=== PATIENT | male | born 1965 | race Caucasian/White ===

== ENCOUNTER 2016-08-08 08:30 | Emergency (ER) | payer BC ==
[2016-08-08] MEDS ORDERED: ONDANSETRON 4 MG/2 ML VIAL IVP STA (09:18)
[2016-08-08] MEDS ORDERED: SODIUM CHLORIDE 0.9% 1,000 ML IV STA ×2 (09:18)
[2016-08-08] MEDS ORDERED: HYDROmorphone 1 MG/ML 1 ML SYRINGE IVP STA (09:18)
--- NOTE | 2016-08-08 09:25 | ED ---
General Adult HPI - General Chief complaint: Abdominal Pain Stated complaint: LLQ PAIN, GROIN PAIN Time Seen by Provider: 08/08/16 09:12 Source: patient, RN notes reviewed Mode of arrival: ambulatory Limitations: no limitations - History of Present Illness Initial comments: Patient 51-year-old male who presents emergency room today with a chief complaint of left lower quadrant pain that began 2 days ago. He does admit that seems to be worse when he is up moving around and better when he is lying still. He states that last night when he rolled over to his right side pain increased. States was more comfortable laying on the left. Patient denies any injury or trauma. Patient denies ever having similar symptoms in the past. Currently rates the pain 2/10 as a standing in the room. Admits to nausea. Denies any other complaints. Patient denies any recent fever, chills, shortness of breath, chest pain, back pain, vomiting, numbness or tingling, dysuria or hematuria, constipation or diarrhea, headaches or visual changes, or any other complaints. - Related Data Previous Rx's Medication Instructions Recorded Ciprofloxacin HCl [Cipro] 500 mg PO Q12HR #20 day 08/08/16 Hydrocodone/Acetaminophen [[place] 1 each PO Q6HR PRN #20 tab 08/08/16 5-325] Ibuprofen [Motrin] 600 mg PO Q6HR PRN #40 day 08/08/16 Ondansetron Odt [Zofran ODT] 4 mg PO Q8HR PRN #20 tab 08/08/16 metroNIDAZOLE [Flagyl] 500 mg PO TID 7 Days 08/08/16 Allergies Allergy/AdvReac Type Severity Reaction Status Date / Time No Known Allergies Allergy Verified 08/08/16 09:46 Review of Systems ROS Statement: Those systems with pertinent positive or pertinent negative responses have been documented in the HPI. ROS Other: All systems not noted in ROS Statement are negative. Past Medical History Past Medical History: No Reported History History of Any Multi-Drug Resistant Organisms: None Reported Past Surgical History: Orthopedic Surgery Past Psychological History: No Psychological Hx Reported Smoking Status: Never smoker Past Alcohol Use History: Occasional Past Drug Use History: None Reported General Exam - General Exam Comments Initial Comments: General: The patient is awake and alert, in no distress, and does not appear acutely ill. Eye: Pupils are equal, round and reactive to light, extra-ocular movements are intact. No nystagmus. There is normal conjunctiva bilaterally. No signs of icterus. Ears, nose, mouth and throat: There are moist mucous membranes and no oral lesions. Neck: The neck is supple, there is no tenderness or JVD. Cardiovascular: There is a regular rate and rhythm. No murmur, rub or gallop is appreciated. Respiratory: Lungs are clear to auscultation, respirations are non-labored, breath sounds are equal. No wheezes, stridor, rales, or rhonchi. Gastrointestinal: Normal exam. Normal bowel sounds. Abdomen soft on palpation. Patient does have tenderness left lower quadrant. No CVA tenderness. No rebound tenderness. No guarding. Musculoskeletal: Normal ROM, no tenderness. Strength 5/5. Sensation intact. Pulses equal bilaterally 2+. Neurological: A&O x 3. CN II-XII intact, There are no obvious motor or sensory deficits. Coordination appears grossly intact. Speech is normal. Skin: Skin is warm and dry and no rashes or lesions are noted. Psychiatric: Cooperative, appropriate mood & affect, normal judgment. Limitations: no limitations Course Vital Signs 08/08/16 08:52 Temperature 99.9 F H Pulse Rate 79 Respiratory 20 Rate Blood Pressure 141/72 O2 Sat by Pulse 99 Oximetry Medical Decision Making - Medical Decision Making Patient reexamined at this time shows no signs of distress. Patient's CT does reveal evidence of diverticular disease. Patient will be started on Cipro Flagyl along with nausea medication and pain medicine to go home with. Feels comfortable being discharged. Patient advised return if any fever or increase or worsening of symptoms. Advised to follow-up with his family doctor. Patient states understanding and is in agreement. - Lab Data Result diagrams: 08/08/16 09:45 08/08/16 09:45 Lab Results 08/08/16 08/08/16 08/08/16 Range/Units 09:45 09:45 09:45 WBC 8.8 (3.8-10.6) k/uL RBC 5.87 (4.30-5.90) m/uL Hgb 15.7 (13.0-17.5) gm/dL Hct 48.4 (39.0-53.0) % MCV 82.4 (80.0-100.0) fL MCH 26.7 (25.0-35.0) pg MCHC 32.4 (31.0-37.0) g/dL RDW 15.1 (11.5-15.5) % Plt Count 236 (150-450) k/uL Neutrophils % 71 % Lymphocytes % 17 % Monocytes % 8 % Eosinophils % 1 % Basophils % 1 % Neutrophils # 6.3 (1.3-7.7) k/uL Lymphocytes # 1.5 (1.0-4.8) k/uL Monocytes # 0.7 (0-1.0) k/uL Eosinophils # 0.1 (0-0.7) k/uL Basophils # 0.1 (0-0.2) k/uL Sodium 142 (137-145) mmol/L Potassium 4.5 (3.5-5.1) mmol/L Chloride 103 (98-107) mmol/L Carbon Dioxide 26 (22-30) mmol/L Anion Gap 13 mmol/L BUN 13 (9-20) mg/dL Creatinine 1.10 (0.66-1.25) mg/dL Est GFR (MDRD) Af Amer >60 (>60 ml/min/1.73 sqM) Est GFR (MDRD) Non-Af >60 (>60 ml/min/1.73 sqM) Glucose 104 H (74-99) mg/dL Plasma Lactic Acid Joey 1.1 (0.7-2.0) mmol/L Calcium 9.5 (8.4-10.2) mg/dL Total Bilirubin 1.1 (0.2-1.3) mg/dL AST 30 (17-59) U/L ALT 42 (21-72) U/L Alkaline Phosphatase 89 (38-126) U/L Total Protein 7.5 (6.3-8.2) g/dL Albumin 4.3 (3.5-5.0) g/dL Amylase 60 (30-110) U/L Lipase 58 (23-300) U/L Urine Color Urine Appearance (Clear) Urine pH (5.0-8.0) Ur Specific [place] (1.001-1.035) Urine Protein (Negative) Urine Glucose (UA) (Negative) Urine Ketones (Negative) Urine Blood (Negative) Urine Nitrate (Negative) Urine Bilirubin (Negative) Urine Urobilinogen (<2.0) mg/dL Ur Leukocyte Esterase (Negative) Urine WBC (0-5) /hpf Urine Mucus (None) /hpf 08/08/16 Range/Units 09:45 WBC (3.8-10.6) k/uL RBC (4.30-5.90) m/uL Hgb (13.0-17.5) gm/dL Hct (39.0-53.0) % MCV (80.0-100.0) fL MCH (25.0-35.0) pg MCHC (31.0-37.0) g/dL RDW (11.5-15.5) % Plt Count (150-450) k/uL Neutrophils % % Lymphocytes % % Monocytes % % Eosinophils % % Basophils % % Neutrophils # (1.3-7.7) k/uL Lymphocytes # (1.0-4.8) k/uL Monocytes # (0-1.0) k/uL Eosinophils # (0-0.7) k/uL Basophils # (0-0.2) k/uL Sodium (137-145) mmol/L Potassium (3.5-5.1) mmol/L Chloride (98-107) mmol/L Carbon Dioxide (22-30) mmol/L Anion Gap mmol/L BUN (9-20) mg/dL Creatinine (0.66-1.25) mg/dL Est GFR (MDRD) Af Amer (>60 ml/min/1.73 sqM) Est GFR (MDRD) Non-Af (>60 ml/min/1.73 sqM) Glucose (74-99) mg/dL Plasma Lactic Acid Joey (0.7-2.0) mmol/L Calcium (8.4-10.2) mg/dL Total Bilirubin (0.2-1.3) mg/dL AST (17-59) U/L ALT (21-72) U/L Alkaline Phosphatase (38-126) U/L Total Protein (6.3-8.2) g/dL Albumin (3.5-5.0) g/dL Amylase (30-110) U/L Lipase (23-300) U/L Urine Color Yellow Urine Appearance Clear (Clear) Urine pH 5.0 (5.0-8.0) Ur Specific [place] 1.018 (1.001-1.035) Urine Protein Negative (Negative) Urine Glucose (UA) Negative (Negative) Urine Ketones Negative (Negative) Urine Blood Negative (Negative) Urine Nitrate Negative (Negative) Urine Bilirubin Negative (Negative) Urine Urobilinogen <2.0 (<2.0) mg/dL Ur Leukocyte Esterase Trace H (Negative) Urine WBC 6 H (0-5) /hpf Urine Mucus Rare H (None) /hpf Disposition Clinical Impression: Acute diverticulitis Disposition: HOME SELF-CARE Condition: Good Instructions: Diverticulitis (ED) Additional Instructions: Please use medication as discussed. Please follow-up with family doctor in the next 2 days of symptoms have not improved. Please return to emergency room if the symptoms increase or worsen or for any other concerns. Prescriptions: Ciprofloxacin HCl [Cipro] 500 mg PO Q12HR #20 day Hydrocodone/Acetaminophen [[place] 5-325] 1 each PO Q6HR PRN #20 tab PRN Reason: Pain Ibuprofen [Motrin] 600 mg PO Q6HR PRN #40 day PRN Reason: Pain Ondansetron Odt [Zofran ODT] 4 mg PO Q8HR PRN #20 tab PRN Reason: Nausea metroNIDAZOLE [Flagyl] 500 mg PO TID 7 Days Referrals: None,Stated [Primary Care Provider] - 1-2 days Madhavi Mohamud MD [STAFF PHYSICIAN] - 1-2 days Time of Disposition: 11:21
[2016-08-08 10:03] LABS: Basophils # (A) 0.1 k/uL (0-0.2); Basophils % (A) 1 %; CH 26.8; CHCM 32.7; Eosinophils # (A) 0.1 k/uL (0-0.7); Eosinophils % (A) 1 %; HCT 48.4 % (39.0-53.0); HDW 2.58; HGB 15.7 gm/dL (13.0-17.5); Luc # (Auto) 0.17; Luc % (Auto) 2; Lymphocytes # (A) 1.5 k/uL (1.0-4.8); Lymphocytes % (A) 17 %; MCH 26.7 pg (25.0-35.0); MCHC 32.4 g/dL (31.0-37.0); MCV 82.4 fL (80.0-100.0); Mean Platelet Volume 7.8; Monocytes # (A) 0.7 k/uL (0-1.0); Monocytes % (A) 8 %; Neutrophils # (A) 6.3 k/uL (1.3-7.7); Neutrophils % (A) 71 %; RBC 5.87 m/uL (4.30-5.90); RDW 15.1 % (11.5-15.5); WBC 8.8 k/uL (3.8-10.6); WBC (Perox) 8.41
[2016-08-08 10:04] LABS: Appearance,Urine Clear (Clear); Bilirubin,Urine Negative (Negative); Glucose,Urine (UA) Negative (Negative); Ketones,Urine Negative (Negative); Leukocyte Esterase,Urine Trace (Negative); Mucus,Urine Rare /hpf; Nitrite,Urine Negative (Negative); Particle Count 1861; Protein,Urine Negative (Negative); Specific Gravity,Urine 1.018 (1.001-1.035); UA Billing (MACRO vs. MICRO) MICRO; Urobilinogen,Urine <2.0 mg/dL (<2.0); WBC,Urine 6 /hpf (0-5)
[2016-08-08 10:13] LABS: ALT 42 U/L (21-72); AST 30 U/L (17-59); Alkaline Phosphatase 89 U/L (38-126); Amylase 60 U/L (30-110); Anion Gap 13 mmol/L; Blood Urea Nitrogen 13 mg/dL (9-20); Calcium 9.5 mg/dL (8.4-10.2); Carbon Dioxide 26 mmol/L (22-30); Chloride 103 mmol/L (98-107); Glucose 104 mg/dL (74-99); Non-African American GFR(MDRD) >60 (>60 ml/min/1.73 sqM); Potassium 4.5 mmol/L (3.5-5.1); Sodium 142 mmol/L (137-145); Total Bilirubin 1.1 mg/dL (0.2-1.3); Total Protein 7.5 g/dL (6.3-8.2)
[2016-08-08] MEDS ORDERED: RX INFO: IV CONTRAST WAS GIVEN 1 EACH MISC MISCELLANE PRN (10:19)
--- NOTE | 2016-08-08 10:35 | XR ---
EXAMINATION TYPE: XR KUB DATE OF EXAM: 08/08/2016 10:08 AM COMPARISON: NONE INDICATION: Abdomen pain left side TECHNIQUE: Single view abdomen FINDINGS: Normal: Bowel gas is present. Some nonspecific small bowel gas is within the left midabdomen and left lower quadrant. Psoas margins are normal. No organomegaly is present. Nonspecific small bowel gas with air-fluid levels may be present. Differential air-fluid levels are n ot present. IMPRESSION: 1. Nonspecific abdomen.
--- NOTE | 2016-08-08 11:03 | CT ---
EXAMINATION TYPE: CT abdomen pelvis w con DATE OF EXAM: 08/08/2016 10:53 AM COMPARISON: NONE INDICATION: LLQ pain DLP: 2128.5 mGycm, Automated exposure control for dose reduction was used. CONTRAST: 100 ml mL of Omnipaque 300. Study performed without Oral Contrast TECHNIQUE: Axial images were obtained from above the diaphragm to the pubic rami in the axial plane a t 5 mm thick sections. Reconstructed images are reviewed on the computer in the coronal plane. FINDINGS: Limited CT sections are obtained the lung bases. The lung bases are clear. CT ABDOMEN: Liver: There is a 1.7 cm cyst at the inferior medial right tip of the liver measuring 5 [place] un its. Spleen: Normal Pancreas: Normal Adrenal glands: The adrenal glands are normal. Gallbladder: Normal Kidneys: No masses are evident. No hydronephrosis is present. No cysts are present. Delayed images were obtained through the kidneys, which remain unremarkable. Aorta: Normal Inferior vena cava: Normal. CT PELVIS: There is mild inflammatory change adjacent to a diverticulum within the descending colon a nd sigmoid colon junction region. Mild diverticulitis may be present. Loops of bowel within the abdomen and pelvis are otherwise normal. Appendix: Normal as visualized. Urinary bladder: Normal. Genitourinary structures: Prostate is prominent. Seminal vesicles are prominent. Correlate with PSA. Osseous structures: No suspicious lytic or sclerotic lesions. There may be a bone island on the lower left anterior sacrum. Sclerotic metastasis is not entirely excluded. IMPRESSIONS: 1. Mild diverticulitis descending colon sigmoid colon junction.
[2016-08-08 11:42] VITALS: BP 135/66; PULSE 73; RESP 18; TEMP 98.2
== END 2016-08-08 11:40 | disposition home or self-care (01) ==
LOC: EC 08:30
DX: K57.92 Diverticulitis of intestine, part unspecified, without perforation or abscess without bleeding (principal); R11.0 Nausea
CPT/HCPCS: 99284; 96374; 96375; 96361 ×2; 36415; 80053; 82150; 83605; 83690; 85025; 81001; 87040; 74000; 74177; J2405; J1170; Q9967

== ENCOUNTER 2021-03-30 09:37 | Emergency (ER) | payer BC, OTHER ==
[2021-03-30 09:44] VITALS: BP 169/84; PULSE 73; RESP 18
[2021-03-30] MEDS ORDERED: DEXAMETHASONE SOD PHOSPHATE 10 MG/ML 1 ML VIAL IM STA (09:59)
--- NOTE | 2021-03-30 10:07 | ED ---
General Adult HPI - General Chief complaint: Extremity Problem,Nontraumatic Stated complaint: ankle pain Time Seen by Provider: 03/30/21 09:45 Source: patient Mode of arrival: ambulatory Limitations: physical limitation - History of Present Illness Initial comments: Dictation was produced using [employer] dictation software. please excuse any grammatical, word or spelling errors. Chief Complaint: 56-year-old male presents with right medial ankle pain History of Present Illness: 56-year-old male who presents with right medial ankle pain. Patient states that prior to the onset of his symptoms he just bought new shoes. He states that his new shoes started to cause him discomfort. Denies any trauma to the ankle. Denies any inciting movements that causes pain. Patient states he had a similar issue like this in the past. He was told it was gout but he did receive IM injection of steroids with improvement of his symptoms after 24 hours. Patient denies any other symptoms. Patient denies any arthritis to the ankle. He states he doesn't have medical insurance and would like is minimal workup as possible. Denies any fever or constitutional symptoms. No nausea or vomiting. The ROS documented in this emergency department record has been reviewed and confirmed by me. Those systems with pertinent positive or negative responses have been documented in the HPI. All other systems are other negative and/or noncontributory. PHYSICAL EXAM: General Impression: Alert and oriented x3, not in acute distress HEENT: Normocephalic atraumatic, extra-ocular movements intact, pupils equal and reactive to light bilaterally, mucous membranes moist. Chest: Able to complete full sentences, no retractions, no tachypnea Musculoskeletal: Pulses present and equal in all extremities, no peripheral edema Motor: no focal deficits noted Neurological: CN II-XII grossly intact, no focal motor or sensory deficits noted Skin: Intact with no visualized rashes Psych: Normal affect and mood Right ankle: Mild erythema to the medial right ankle with palpatory tenderness. He does have intact ankle flexion and extension with minimal pain. Patient's ankle is manipulated without significant distress. ED course: 56-year-old male presents to the emergency department for atraumatic right medial ankle pain. Prior to the onset of symptoms he just started to wear new shoes. Vital signs upon arrival shows findings within acceptable limits. Clinical presentation concerning for gout versus arthritic pain. Patient does not want an x-ray in order to reduce ER visit cost. No concerns for septic arthritis. Does limited constitutional symptoms. Initial temperature checked in triage was 100.1 but he was wearing all of his winter clothing. repeat temp in 99.0. Patient wants an IM injection of steroids and be discharge. I believe this is reasonable plan. Patient told that his symptoms could reflect gout. Her primary care physician he can follow up with for reevaluation. Return precautions discussed. - Related Data Previous Rx's Medication Instructions Recorded Ciprofloxacin HCl [Cipro] 500 mg PO Q12HR #20 day 08/08/16 Hydrocodone/Acetaminophen [[place] 1 each PO Q6HR PRN #20 tab 08/08/16 5-325] Ibuprofen [Motrin] 600 mg PO Q6HR PRN #40 day 08/08/16 Ondansetron Odt [Zofran ODT] 4 mg PO Q8HR PRN #20 tab 08/08/16 metroNIDAZOLE [Flagyl] 500 mg PO TID 7 Days tab 08/08/16 Allergies Allergy/AdvReac Type Severity Reaction Status Date / Time No Known Allergies Allergy Verified 03/30/21 09:44 Review of Systems ROS Statement: Those systems with pertinent positive or pertinent negative responses have been documented in the HPI. ROS Other: All systems not noted in ROS Statement are negative. Past Medical History Past Medical History: No Reported History History of Any Multi-Drug Resistant Organisms: None Reported Past Surgical History: Orthopedic Surgery Past Psychological History: No Psychological Hx Reported Smoking Status: Never smoker Past Alcohol Use History: Occasional Past Drug Use History: None Reported General Exam Limitations: physical limitation Course Vital Signs 03/30/21 09:41 Temperature 100.1 F H Pulse Rate 73 Respiratory 18 Rate Blood Pressure 169/84 O2 Sat by Pulse 98 Oximetry Disposition Clinical Impression: Ankle pain Disposition: HOME SELF-CARE Condition: Fair Instructions (If sedation given, give patient instructions): Arthralgia (ED) Additional Instructions: Follow-up with primary care doctor. Henry seek medical attention if you have worsening pain, constitutional symptoms like fever, chills or night sweats. Is patient prescribed a controlled substance at d/c from ED?: No Referrals: Kevin Birch MD [Primary Care Provider] - 1-2 days
[2021-03-30 10:11] VITALS: TEMP 99.3
== END 2021-03-30 10:25 | disposition home or self-care (01) ==
LOC: EC 09:37
DX: M25.571 Pain in right ankle and joints of right foot (principal)
CPT/HCPCS: 96372; 99283; J1100

== ENCOUNTER 2021-08-05 04:30 | Inpatient (IN) | payer BC ==
[2021-08-05] MEDS ORDERED: MORPHINE SULFATE 4 MG/ML SYRINGE IV STA (04:51)
[2021-08-05] MEDS ORDERED: ONDANSETRON 4 MG/2 ML VIAL IVP STA (04:51)
[2021-08-05] MEDS ORDERED: SODIUM CHLORIDE 0.9% 1,000 ML IV STA (04:51)
--- NOTE | 2021-08-05 04:52 | ED ---
Abdominal Pain HPI - General Chief Complaint: Abdominal Pain Stated Complaint: Groin Pain Time Seen by Provider: 08/05/21 04:51 Source: patient, RN notes reviewed, old records reviewed Mode of arrival: ambulatory Limitations: no limitations - History of Present Illness Initial Comments: This is a 56-year-old male DF for evaluation. Patient denies any significant medical history does have a prior history of diverticulitis and started with severe abdominal pain 2 days ago. Patient initially thought it may be food that he ate but the pain is progressively worsening developed fever last night fever of 101. Has a mild nausea no vomiting. No diarrhea no blood in the stool. Patient has never had a colonoscopy. Patient's abdominal pain significant for progressed throughout the night and today presents DF for evaluation and pain control MD Complaint: abdominal pain (Left lower quadrant) -: days(s) Location: LLQ Radiation: LLQ Migration to: LLQ, suprapubic Severity: severe Severity scale (1-10): 8 Quality: cramping, stabbing Consistency: constant Improves With: nothing Worsens With: nothing Associated Symptoms: nausea, constipation Treatments Prior to Arrival: other (none) - Related Data Previous Rx's Medication Instructions Recorded Ciprofloxacin HCl [Cipro] 500 mg PO Q12HR #20 day 08/08/16 Hydrocodone/Acetaminophen [[place] 1 each PO Q6HR PRN #20 tab 08/08/16 5-325] Ibuprofen [Motrin] 600 mg PO Q6HR PRN #40 day 08/08/16 Ondansetron Odt [Zofran ODT] 4 mg PO Q8HR PRN #20 tab 08/08/16 metroNIDAZOLE [Flagyl] 500 mg PO TID 7 Days tab 08/08/16 Allergies Allergy/AdvReac Type Severity Reaction Status Date / Time No Known Allergies Allergy Verified 08/05/21 04:39 Review of Systems ROS Statement: Those systems with pertinent positive or pertinent negative responses have been documented in the HPI. ROS Other: All systems not noted in ROS Statement are negative. Past Medical History Past Medical History: No Reported History History of Any Multi-Drug Resistant Organisms: None Reported Past Surgical History: Orthopedic Surgery Additional Past Surgical History / Comment(s): surgery both knees Past Psychological History: No Psychological Hx Reported Smoking Status: Never smoker Past Alcohol Use History: Occasional Past Drug Use History: None Reported General Exam General appearance: alert, in no apparent distress Head exam: Present: atraumatic, normocephalic, normal inspection Eye exam: Present: normal appearance, PERRL, EOMI. Absent: scleral icterus, conjunctival injection, periorbital swelling ENT exam: Present: normal exam, mucous membranes moist Neck exam: Present: normal inspection. Absent: tenderness, meningismus, lymphadenopathy Respiratory exam: Present: normal lung sounds bilaterally. Absent: respiratory distress, wheezes, rales, rhonchi, stridor Cardiovascular Exam: Present: regular rate, normal rhythm, normal heart sounds. Absent: systolic murmur, diastolic murmur, rubs, gallop, clicks GI/Abdominal exam: Present: soft, distended, tenderness, guarding, normal bowel sounds. Absent: rebound, rigid Extremities exam: Present: normal inspection, full ROM, normal capillary refill. Absent: tenderness, pedal edema, joint swelling, calf tenderness Back exam: Present: normal inspection Neurological exam: Present: alert, oriented X3, CN II-XII intact Psychiatric exam: Present: normal affect, normal mood Skin exam: Present: warm, dry, intact, normal color. Absent: rash Course Vital Signs 08/05/21 04:35 Temperature 98 F Pulse Rate 100 Respiratory 19 Rate Blood Pressure 150/99 O2 Sat by Pulse 98 Oximetry - Reevaluation(s) Reevaluation #1: 08/05/21 06:24 Medical record is reviewed Reevaluation #2: 08/05/21 06:24 Patient's pain is well-controlled currently but does not fill comfortable with discharge Reevaluation #3: 08/05/21 06:24 Patient informed results and questions have been answered Medical Decision Making - Medical Decision Making 56 male to the emergency department today. Patient Dese for evaluation regards to severe left lower quadrant abdominal pain unable to move due to the pain. Patient does have left-sided diverticulitis worsen his prior bout of diverticulitis. Also presented with fever at home 101. Patient be admitted for IV antibiotics and by mouth status and pain control - Lab Data Result diagrams: 08/05/21 05:00 08/05/21 05:00 Lab Results 08/05/21 08/05/21 08/05/21 Range/Units 05:00 05:00 05:00 WBC 5.6 (3.8-10.6) k/uL RBC 5.91 H (4.30-5.90) m/uL Hgb 17.7 H (13.0-17.5) gm/dL Hct 51.8 (39.0-53.0) % MCV 87.7 (80.0-100.0) fL MCH 30.1 (25.0-35.0) pg MCHC 34.3 (31.0-37.0) g/dL RDW 14.1 (11.5-15.5) % Plt Count 174 (150-450) k/uL MPV 7.9 Neutrophils % 65 % Lymphocytes % 23 % Monocytes % 7 % Eosinophils % 1 % Basophils % 1 % Neutrophils # 3.7 (1.3-7.7) k/uL Lymphocytes # 1.3 (1.0-4.8) k/uL Monocytes # 0.4 (0-1.0) k/uL Eosinophils # 0.1 (0-0.7) k/uL Basophils # 0.0 (0-0.2) k/uL PT 11.0 (9.0-12.0) sec INR 1.0 (<1.2) APTT 26.0 (22.0-30.0) sec Sodium 134 L (137-145) mmol/L Potassium 4.1 (3.5-5.1) mmol/L Chloride 101 (98-107) mmol/L Carbon Dioxide 22 (22-30) mmol/L Anion Gap 11 mmol/L BUN 14 (9-20) mg/dL Creatinine 0.94 (0.66-1.25) mg/dL Est GFR (CKD-EPI)AfAm >90 (>60 ml/min/1.73 sqM) Est GFR (CKD-EPI)NonAf >90 (>60 ml/min/1.73 sqM) Glucose 115 H (74-99) mg/dL Plasma Lactic Acid Joey (0.7-2.0) mmol/L Calcium 9.0 (8.4-10.2) mg/dL Total Bilirubin 0.9 (0.2-1.3) mg/dL AST 38 (17-59) U/L ALT 34 (4-49) U/L Alkaline Phosphatase 88 (38-126) U/L Total Protein 7.7 (6.3-8.2) g/dL Albumin 4.5 (3.5-5.0) g/dL Amylase 55 (30-110) U/L Lipase 60 (23-300) U/L 08/05/21 Range/Units 05:00 WBC (3.8-10.6) k/uL RBC (4.30-5.90) m/uL Hgb (13.0-17.5) gm/dL Hct (39.0-53.0) % MCV (80.0-100.0) fL MCH (25.0-35.0) pg MCHC (31.0-37.0) g/dL RDW (11.5-15.5) % Plt Count (150-450) k/uL MPV Neutrophils % % Lymphocytes % % Monocytes % % Eosinophils % % Basophils % % Neutrophils # (1.3-7.7) k/uL Lymphocytes # (1.0-4.8) k/uL Monocytes # (0-1.0) k/uL Eosinophils # (0-0.7) k/uL Basophils # (0-0.2) k/uL PT (9.0-12.0) sec INR (<1.2) APTT (22.0-30.0) sec Sodium (137-145) mmol/L Potassium (3.5-5.1) mmol/L Chloride (98-107) mmol/L Carbon Dioxide (22-30) mmol/L Anion Gap mmol/L BUN (9-20) mg/dL Creatinine (0.66-1.25) mg/dL Est GFR (CKD-EPI)AfAm (>60 ml/min/1.73 sqM) Est GFR (CKD-EPI)NonAf (>60 ml/min/1.73 sqM) Glucose (74-99) mg/dL Plasma Lactic Acid Joey 0.8 (0.7-2.0) mmol/L Calcium (8.4-10.2) mg/dL Total Bilirubin (0.2-1.3) mg/dL AST (17-59) U/L ALT (4-49) U/L Alkaline Phosphatase (38-126) U/L Total Protein (6.3-8.2) g/dL Albumin (3.5-5.0) g/dL Amylase (30-110) U/L Lipase (23-300) U/L - Radiology Data Radiology results: report reviewed (CT abdomen and pelvis is positive for diverticulitis worsen prior), image reviewed Disposition Clinical Impression: Abdominal pain, Diverticulitis, Acute diverticulitis, Fever Disposition: ADMITTED IP TO THIS HOSP Condition: Stable Is patient prescribed a controlled substance at d/c from ED?: No Referrals: Kevin Birch MD [Primary Care Provider] - 1-2 days
[2021-08-05 05:15] LABS: Basophils % (A) 1 %; Eosinophils # (A) 0.1 k/uL (0-0.7); Eosinophils % (A) 1 %; HCT 51.8 % (39.0-53.0); HGB 17.7 gm/dL (13.0-17.5); Lymphocytes # (A) 1.3 k/uL (1.0-4.8); Lymphocytes % (A) 23 %; MCH 30.1 pg (25.0-35.0); MCHC 34.3 g/dL (31.0-37.0); MCV 87.7 fL (80.0-100.0); Mean Platelet Volume 7.9; Monocytes # (A) 0.4 k/uL (0-1.0); Monocytes % (A) 7 %; Neutrophils # (A) 3.7 k/uL (1.3-7.7); Neutrophils % (A) 65 %; Platelet Count 174 k/uL (150-450); RBC 5.91 m/uL (4.30-5.90); RDW 14.1 % (11.5-15.5); WBC 5.6 k/uL (3.8-10.6)
[2021-08-05 05:27] LABS: ALT 34 U/L (4-49); AST 38 U/L (17-59); African American GFR (CKD) >90 (>60 ml/min/1.73 sqM); Albumin 4.5 g/dL (3.5-5.0); Alkaline Phosphatase 88 U/L (38-126); Amylase 55 U/L (30-110); Anion Gap 11 mmol/L; Blood Urea Nitrogen 14 mg/dL (9-20); Carbon Dioxide 22 mmol/L (22-30); Chloride 101 mmol/L (98-107); Glucose 115 mg/dL (74-99); Lipase 60 U/L (23-300); Non-African American GFR(CKD) >90 (>60 ml/min/1.73 sqM); Potassium 4.1 mmol/L (3.5-5.1); Sodium 134 mmol/L (137-145); Total Bilirubin 0.9 mg/dL (0.2-1.3); Total Protein 7.7 g/dL (6.3-8.2)
--- NOTE | 2021-08-05 05:50 | CT ---
EXAMINATION TYPE: CT abdomen pelvis w con DATE OF EXAM: 08/05/2021 COMPARISON: 08/08/2016 HISTORY: lower abdominal pain CT DLP: 2591.6 mGycm Automated exposure control for dose reduction was used. CONTRAST: Performed with IV Contrast, patient injected with 100ml mL of Isovue 300. Images obtained from the diaphragm to the floor the pelvis with IV contrast. Lung bases are clear. There is no pleural effusion. Heart size is normal. There is no pericardial eff usion. Liver spleen stomach pancreas appear intact. Bowel gas are not dilated. Gallbladder appears no rmal. There is no adrenal mass. Kidneys show satisfactory contrast opacification. There is no hydronephrosi s. Ureters are not dilated. Appendix is posterior and appears normal. The bladder distends smoothly. There is no retroperitoneal adenopathy. There is no inguinal hernia. There is no free fluid in the pelvis. There is some fat stranding around the proximal sigmoid colon w ith numerous diverticula. Lumbar vertebrae have normal alignment. There is no compression fracture. Bony pelvis is intact. The hip joints are intact. IMPRESSION: Sigmoid diverticulitis. No drainable fluid collection. Moderate colonic diverticulosis involving main ly the sigmoid colon. Diverticulitis appears worse than last exam.
[2021-08-05] MEDS ORDERED: AMPICILLIN-SULBACTAM 3 GM in SODIUM CHLORIDE 0.9% 100 ML IVPB STA (05:53)
[2021-08-05] MEDS ORDERED: LORazepam 2 MG/ML INJ IV PRN (06:26)
[2021-08-05] MEDS ORDERED: NALOXONE 0.4 MG/ML 1 ML VIAL IV PRN ×2 (06:26→11:33)
[2021-08-05] MEDS ORDERED: MORPHINE SULFATE 4 MG/ML SYRINGE IV PRN (06:26)
[2021-08-05] MEDS ORDERED: ONDANSETRON 4 MG/2 ML VIAL IVP PRN (06:26)
[2021-08-05] MEDS: SODIUM CHLORIDE 0.9% 1,000 ML IV SCH ×2 (06:37→21:52)
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
[2021-08-05] MEDS: metroNIDAZOLE-NS PMX 500 MG in SALINE 1 100ML.BAG IVPB SCH ×2 (15:00→21:52)
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
[2021-08-05] MEDS ORDERED: AMPICILLIN-SULBACTAM 3 GM in SODIUM CHLORIDE 0.9% 100 ML IVPB SCH (16:00)
[2021-08-06] MEDS: SODIUM CHLORIDE 0.9% 1,000 ML IV SCH ×4 (00:20→22:24)
[2021-08-06] MEDS: metroNIDAZOLE-NS PMX 500 MG in SALINE 1 100ML.BAG IVPB SCH ×3 (03:38→19:46)
[2021-08-06 09:41] LABS: Basophils # (A) 0.03 X 10*3/uL (0.00-0.10); Basophils % (A) 0.5 %; Eosinophils # (A) 0.05 X 10*3/uL (0.04-0.35); Eosinophils % (A) 0.8 %; HCT 47.4 % (39.6-50.0); HGB 15.4 g/dL (13.0-17.0); Immature Grans, Automated 0.3 %; Lymphocytes # (A) 1.11 X 10*3/uL (0.90-5.00); Lymphocytes % (A) 18.6 %; MCH 28.6 pg (27.0-32.0); MCHC 32.5 g/dL (32.0-37.0); MCV 88.1 fL (80.0-97.0); Mean Platelet Volume 10.7 fL (9.5-12.2); Monocytes # (A) 0.95 X 10*3/uL (0.20-1.00); Monocytes % (A) 15.9 %; NRBC Per 100 WBC 0 /100 WBCS (0.0-0.0); Neutrophils # (A) 3.82 X 10*3/uL (1.80-7.70); Neutrophils % (A) 63.9 %; Platelet Count 156 X 10*3/uL (140-440); RBC 5.38 X 10*6/uL (4.40-5.60); RDW 13.8 % (11.5-14.5); WBC 5.98 X 10*3/uL (4.50-10.00)
[2021-08-06 10:00] LABS: African American GFR (CKD) 110.3 (60.0-200.0); Albumin 3.7 g/dL (3.8-4.9); Albumin/Globulin Ratio 1.61 (1.60-3.17); Anion Gap 10.9 mmol/L (10.00-18.00); BUN/Creat Ratio 9.89 Ratio (12.00-20.00); Blood Urea Nitrogen 8.9 mg/dL (9.0-27.0); Calcium 8.5 mg/dL (8.7-10.3); Carbon Dioxide 24.1 mmol/L (20.0-27.5); Globulin 2.3 g/dL (1.6-3.3); Magnesium 1.9 mg/dL (1.5-2.4); Non-African American GFR(CKD) 95.1 (60.0-200.0); Phosphorus 3.1 mg/dL (2.4-5.1); Potassium 4.2 mmol/L (3.5-5.5); Total Bilirubin 0.5 mg/dL (0.30-1.20)
[2021-08-06] MEDS ORDERED: KETOROLAC 30 MG/ML 1 ML VIAL IVP SCH (12:00)
--- NOTE | 2021-08-06 12:42 | P.PN ---
Subjective Progress Note Date: 08/06/21 CHIEF COMPLAINT: Diverticulitis HISTORY OF PRESENT ILLNESS: Patient reporting improvement in pain. He reports that his pain is mostly with movement. He is having small amount of gas. Denies any bowel movement. Denies any nausea or vomiting. Currently nothing by mouth. White count normal at 5.98. Patient requesting something other than morphine for pain. Afebrile. PHYSICAL EXAM: VITAL SIGNS: Reviewed. GENERAL: Well-developed in no acute distress. HEENT: No sclera icterus. Extraocular movements grossly intact. Moist buccal mucosa. Head is atraumatic, normocephalic. ABDOMEN: Soft. Nondistended. Pain with palpation in the left lower quadrant. NEUROLOGIC: Alert and oriented. Cranial nerves II through XII grossly intact. ASSESSMENT: 1. Acute sigmoid diverticulitis PLAN: -Keep patient nothing by mouth -Continue IV antibiotics -Add Toradol for pain control -Continue to monitor patient Physician Air Brush Operator note has been reviewed by physician. Signing provider agrees with the documented findings, assessment, and plan of care. Objective - Vital Signs Vital signs: Vital Signs Temp 97.4 F L 08/06/21 07:14 Pulse 78 08/06/21 07:14 Resp 18 08/06/21 07:14 BP 128/81 08/06/21 07:14 Pulse Ox 95 08/06/21 07:14 Intake & Output 08/05/21 08/06/21 08/06/21 18:59 06:59 18:59 Intake Total 1400 Output Total 1 Balance 1399 Weight 117.934 kg Intake: Intake, IV Titration 1400 Amount Sodium Chloride 0.9% 1, 1300 000 ml @ 130 mls/hr IV . Q7H42M [facility] Rx#:[id number] metroNIDAZOLE-NS PMX 500 100 mg In Saline 1 100ml.bag @ 100 mls/hr IVPB Q8H [facility] Rx#:[id number] Output: Urine 1 Other: Voiding Method Toilet # Voids 2 - Labs CBC & Chem 7: 08/06/21 04:30 08/06/21 04:30 Labs: Abnormal Lab Results - Last 24 Hours (Table) 08/06/21 Range/Units 04:30 BUN 8.9 L (9.0-27.0) mg/dL BUN/Creatinine Ratio 9.89 L (12.00-20.00) Ratio Calcium 8.5 L (8.7-10.3) mg/dL Total Protein 6.0 L (6.2-8.2) g/dL Albumin 3.7 L (3.8-4.9) g/dL
--- NOTE | 2021-08-06 14:04 | P.PN ---
Subjective Progress Note Date: 08/06/21 Principal diagnosis: abdominal pain Doing well. Feeling slightly better but still with pain in the left side of the abdomen. No nausea or vomiting. No fevers. Objective - Vital Signs Vital signs: Vital Signs Temp 97.4 F L 08/06/21 07:14 Pulse 78 08/06/21 07:14 Resp 18 08/06/21 07:14 BP 128/81 08/06/21 07:14 Pulse Ox 95 08/06/21 07:14 Intake & Output 08/05/21 08/06/21 08/06/21 18:59 06:59 18:59 Intake Total 1400 Output Total 1 Balance 1399 Weight 117.934 kg Intake: Intake, IV Titration 1400 Amount Sodium Chloride 0.9% 1, 1300 000 ml @ 130 mls/hr IV . Q7H42M [facility] Rx#:[id number] metroNIDAZOLE-NS PMX 500 100 mg In Saline 1 100ml.bag @ 100 mls/hr IVPB Q8H [facility] Rx#:[id number] Output: Urine 1 Other: Voiding Method Toilet # Voids 2 - Exam Constitutional: No acute distress, conversant, pleasant Eyes:Anicteric sclerae, moist conjunctiva, no lid-lag, PERRLA, ENMT: Oropharynx clear, no erythema, exudates Neck: Supple, FROM, no masses, or JVD, No carotid bruits, No thyromegaly Lungs: Clear to auscultation, Clear to percussion, Normal respiratory effort, no accessory muscle use Cardiovascular: Heart regular in rate and rhythm, No murmurs, gallops, or rubs, No peripheral edema Abdominal: Soft, left lower quadrant tenderness, no guarding, rebound or rigidity, Normoactive bowel sounds, No hepatomegaly, No splenomegaly, No palpa ble mass Skin: Normal temperature, tone, texture, turgor, no induration, No subcutaneous nodules, No rash, lesions, No ulcers Extremities: No digital cyanosis, No clubbing, Pedal pulses intact and sy mmetrical, Radial pulses intact and symmetrical, No calf tenderness Psychiatric: Alert and oriented to person, place and time, appropriate affect, intact judgement Neuro: Muscles Strength 5/5 in all 4 extremities, Sensation to light touch grossly present throughout, Cranial nerves II-XII grossly intact, no focal sensory deficits - Labs CBC & Chem 7: 08/06/21 04:30 08/06/21 04:30 Labs: Abnormal Lab Results - Last 24 Hours (Table) 08/06/21 Range/Units 04:30 BUN 8.9 L (9.0-27.0) mg/dL BUN/Creatinine Ratio 9.89 L (12.00-20.00) Ratio Calcium 8.5 L (8.7-10.3) mg/dL Total Protein 6.0 L (6.2-8.2) g/dL Albumin 3.7 L (3.8-4.9) g/dL Assessment and Plan Plan: Acute diverticulitis IV fluids Nothing by mouth IV antibiotics Morphine for pain control Seen by surgery DVT prophylaxis Low risk Not indicated
[2021-08-06] MEDS ORDERED: KETOROLAC 30 MG/ML 1 ML VIAL IVP PRN (14:18)
[2021-08-07] MEDS: metroNIDAZOLE-NS PMX 500 MG in SALINE 1 100ML.BAG IVPB SCH ×2 (03:58→11:31)
[2021-08-07] MEDS: SODIUM CHLORIDE 0.9% 1,000 ML IV SCH ×2 (03:59→11:32)
[2021-08-07 09:13] LABS: Basophils # (A) 0.03 X 10*3/uL (0.00-0.10); Basophils % (A) 0.6 %; Eosinophils # (A) 0.08 X 10*3/uL (0.04-0.35); Eosinophils % (A) 1.6 %; HCT 45.3 % (39.6-50.0); HGB 14.8 g/dL (13.0-17.0); Immature Grans, Automated 0.2 %; Lymphocytes # (A) 1.06 X 10*3/uL (0.90-5.00); Lymphocytes % (A) 20.9 %; MCH 28.6 pg (27.0-32.0); MCHC 32.7 g/dL (32.0-37.0); MCV 87.6 fL (80.0-97.0); Mean Platelet Volume 10.9 fL (9.5-12.2); Monocytes # (A) 0.63 X 10*3/uL (0.20-1.00); Monocytes % (A) 12.4 %; NRBC Per 100 WBC 0 /100 WBCS (0.0-0.0); Neutrophils # (A) 3.27 X 10*3/uL (1.80-7.70); Neutrophils % (A) 64.3 %; Platelet Count 167 X 10*3/uL (140-440); RBC 5.17 X 10*6/uL (4.40-5.60); RDW 13.5 % (11.5-14.5); WBC 5.08 X 10*3/uL (4.50-10.00)
--- NOTE | 2021-08-07 13:28 | P.PN ---
Subjective Progress Note Date: 08/07/21 CHIEF COMPLAINT: Diverticulitis HISTORY OF PRESENT ILLNESS: Patient is reporting significant improvement in his left lower quadrant abdominal pain. He describes it as is minimal pressure. He is able to walk and ambulate better. He is having flatus. Denies any nausea or vomiting. Afebrile. White count remains normal at 5.08 Patient seen and examined with Dr. berger PHYSICAL EXAM: VITAL SIGNS: Reviewed. GENERAL: Well-developed in no acute distress. HEENT: No sclera icterus. Extraocular movements grossly intact. Moist buccal mucosa. Head is atraumatic, normocephalic. ABDOMEN: Soft. Nondistended. Minimal tenderness with palpation of the left lower quadrant NEUROLOGIC: Alert and oriented. Cranial nerves II through XII grossly intact. ASSESSMENT: 1. Acute sigmoid diverticulitis PLAN: -Patient can be discharged from surgical standpoint -Recommend antibiotics at discharge -Patient follow up with Dr. berger in 1 week -Recommend slow advancement of diet after discharge Physician Residence Life Director note has been reviewed by physician. Signing provider agrees with the documented findings, assessment, and plan of care. Objective - Vital Signs Vital signs: Vital Signs Temp 98.5 F 08/07/21 07:06 Pulse 57 L 08/07/21 07:06 Resp 17 08/07/21 07:06 BP 132/67 08/07/21 07:06 Pulse Ox 98 08/07/21 07:06 Intake & Output 08/06/21 08/07/21 08/07/21 18:59 06:59 18:59 Other: Voiding Method Toilet # Voids 2 - Labs CBC & Chem 7: 08/07/21 04:37 08/06/21 04:30
[2021-08-07 14:16] VITALS: BP 113/66; PULSE 69; RESP 18; TEMP 98.1
--- NOTE | 2021-08-07 14:55 | P.DS ---
Providers Date of admission: 08/05/21 06:27 Expected date of discharge: 08/07/21 Attending physician: Isha Ramirez MD Consults: 08/05/21 06:27 Consult Physician Routine Consulting Provider: Frankie Gómez Consult Reason/Comments: [employer] Do you want consulting provider notified?: Yes Primary care physician: [facility] Course: 56-year-old male presented to the emergency department due to intermittent abdominal pain located in the left lower quadrant. Pain is much worse with movement. It was associated with fevers as well as currently resolved. No naus ea or vomiting. No diarrhea or constipation. Patient denies any significant medical history but does have a prior history of diverticulitis about 6 years ago. That was resolved without any complications. No hematemesis or hematochezia. Patient has never had a colonoscopy. Evaluation in the emergency department with computed tomography scan of the abdomen showed left sided sigmoid diverticulitis. No abscess was seen. He was afebrile, laboratory evaluation was unremarkable. He was admitted for IV fluids and IV antibiotics treatment. Initially patient continued to have severe left lower quadrant epigastric pain, pain was treated with morphine and Toradol. He was kept nothing by mouth for about 36 hours. He was continued on ceftriaxone and Flagyl. Today he was started on diet. He tolerated it well. He was seen by surgery service, no surgical intervention was advised. Surgical service concurred with management. He will be discharged home in stable condition. Patient Condition at Discharge: Stable Plan - Discharge Summary Discharge Rx Participant: No New Discharge Prescriptions: New Amoxicillin/Potassium Clav [Augmentin 875-125 Tablet] 1 tab PO BID 5 Days #10 tab Continue RX: Ibuprofen [Motrin Ib] 800 mg PO Q8H PRN PRN Reason: Pain Discharge Medication List RX: Ibuprofen [Motrin Ib] 800 mg PO Q8H PRN 08/05/21 [History] Amoxicillin/Potassium Clav [Augmentin 875-125 Tablet] 1 tab PO BID 5 Days #10 tab 08/07/21 [Rx] Follow up Appointment(s)/Referral(s): Kevin Birch MD [Primary Care Provider] - 1-2 days Frankie Gómez MD [STAFF PHYSICIAN] - 1 Week
== END 2021-08-07 15:35 | disposition home or self-care (01) | DRG 392 ==
LOC: EC 04:30 → 4SSUR 06:27
PROVIDERS: ADMIT Internal Medicine; ATTEND Internal Medicine
DX: K57.32 Diverticulitis of large intestine without perforation or abscess without bleeding (principal); H91.92 Unspecified hearing loss, left ear; K59.00 Constipation, unspecified; K21.9 Gastro-esophageal reflux disease without esophagitis; M17.0 Bilateral primary osteoarthritis of knee; Z82.49 Family history of ischemic heart disease and other diseases of the circulatory system; Z96.1 Presence of intraocular lens; Z98.42 Cataract extraction status, left eye; Z98.41 Cataract extraction status, right eye
CPT/HCPCS: 36415; 74177; 80053; 82150; 83605; 83690; 83735; 84100; 85025; 85610; 85730; 96361; 96365; 96375; 99285

== ENCOUNTER 2023-05-29 06:26 | Observation (INO) | payer BC ==
[2023-05-29] MEDS ORDERED: HYDROmorphone 0.5 MG/0.5 ML SYRINGE IVP STA ×2 (06:46→08:06)
[2023-05-29] MEDS ORDERED: ONDANSETRON 4 MG/2 ML VIAL IVP STA (06:46)
[2023-05-29] MEDS ORDERED: KETOROLAC 15 MG/ML 1 ML VIAL IVP STA (06:46)
[2023-05-29] MEDS ORDERED: SODIUM CHLORIDE 0.9% 1,000 ML IV ONE (06:46)
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
[2023-05-29 07:16] LABS: Basophils % (A) 0 %; Eosinophils # (A) 0.1 k/uL (0-0.7); Eosinophils % (A) 1 %; HCT 52.5 % (39.0-53.0); HGB 17.8 gm/dL (13.0-17.5); Lymphocytes # (A) 1.5 k/uL (1.0-4.8); Lymphocytes % (A) 19 %; MCH 30.9 pg (25.0-35.0); MCHC 33.9 g/dL (31.0-37.0); MCV 91.3 fL (80.0-100.0); Mean Platelet Volume 7.7; Monocytes # (A) 0.5 k/uL (0-1.0); Monocytes % (A) 6 %; Neutrophils # (A) 5.8 k/uL (1.3-7.7); Neutrophils % (A) 72 %; Platelet Count 211 k/uL (150-450); RBC 5.75 m/uL (4.30-5.90); RDW 12.9 % (11.5-15.5); WBC 8.1 k/uL (3.8-10.6)
--- NOTE | 2023-05-29 07:28 | XR ---
EXAMINATION TYPE: XR chest 2V DATE OF EXAM: 05/29/2023 7:22 AM CLINICAL INDICATION:Male, 58 years old with history of cough; [facility] COMPARISON: None TECHNIQUE: XR chest 2V Frontal and lateral views of the chest. FINDINGS: Lungs/Pleura: There is no evidence of pleural effusion, focal consolidation, or pneumothorax. Pulmonary vascularity: Unremarkable. Heart/mediastinum: Cardiomediastinal silhouette is unremarkable. Musculoskeletal: No acute osseous pathology. IMPRESSION: No acute cardiopulmonary disease/process.
[2023-05-29 07:33] LABS: ALT 35 U/L (4-49); AST 44 U/L (17-59); African American GFR (CKD) >90 (>60 ml/min/1.73 sqM); Albumin 4.4 g/dL (3.5-5.0); Alkaline Phosphatase 97 U/L (38-126); Anion Gap 8 mmol/L; Blood Urea Nitrogen 13 mg/dL (9-20); Calcium 9.4 mg/dL (8.4-10.2); Carbon Dioxide 26 mmol/L (22-30); Chloride 101 mmol/L (98-107); Glucose 104 mg/dL (74-99); Lipase 129 U/L (23-300); Non-African American GFR(CKD) >90 (>60 ml/min/1.73 sqM); Potassium 4.5 mmol/L (3.5-5.1); Sodium 135 mmol/L (137-145); Total Bilirubin 0.9 mg/dL (0.2-1.3); Total Protein 7.3 g/dL (6.3-8.2)
--- NOTE | 2023-05-29 07:49 | CT ---
EXAMINATION TYPE: CT abdomen pelvis w con CT DLP: 2823.5 mGycm, Automated exposure control for dose reduction was used. DATE OF EXAM: 05/29/2023 7:37 AM COMPARISON: CT abdomen pelvis most recent from CLINICAL INDICATION:Male, 58 years old with history of right side pain; right anterior abd pain TECHNIQUE: Axial CT abdomen pelvis w con;Sagittal and coronal reformats were created on a separate w orkstation. Contrast used:100 mL of Isovue 300 with IV Contrast, (none if empty) Oral contrast used: without Oral Contrast (none if empty) FINDINGS: LOWER CHEST: Airspace opacities in the left lower lobe medially. ABDOMEN LIVER: Simple appearing liver cyst. GALLBLADDER AND BILE DUCTS: Unremarkable. PANCREAS: Unremarkable. SPLEEN: Unremarkable. ADRENAL GLANDS: Unremarkable. KIDNEYS AND URETERS: No evidence of hydronephrosis or renal calculus. The ureters are unremarkable. PELVIS BLADDER: Unremarkable REPRODUCTIVE: Prostate is enlarged in size measuring 6.0 cm in transverse dimension. ABDOMEN & PELVIS STOMACH AND BOWEL: No evidence of bowel obstruction. Scattered colonic diverticula are present. PERITONEUM/RETROPERITONEUM: No evidence of pneumoperitoneum or free fluid. VASCULATURE: No evidence of aortic aneurysm. MUSCULOSKELETAL: No acute osseous abnormalities LYMPH NODES: No gross evidence for lymphadenopathy. SOFT TISSUE/ABDOMINAL WALL: Rectus sheath hematoma on the right abdominal wall measuring 10.2 x 5.6 x 9.0 cm curvilinear high density suggestive of active bleeding noted series 203 image 57 and series 201 image 54. Left fat-containing inguinal hernia. A fat containing umbilical hernia. IMPRESSION: 1. Actively bleeding rectus sheath hematoma on the right measuring up to 10.2 x 5 5.6 x 9.0 cm. 2. Left lower lobe airspace opacities correlate for pneumonia. Consider short-term follow-up. 3. Prostatomegaly, correlate with serum PSA. 4. Scattered colonic diverticulosis. Findings communicated to Dr. Arpit Victor on 05/29/2023 7:[address] Chema Munoz.
[2023-05-29] MEDS ORDERED: HYDROmorphone 0.5 MG/0.5 ML SYRINGE IVP PRN (08:25)
[2023-05-29] MEDS ORDERED: ONDANSETRON 4 MG/2 ML VIAL IVP PRN (08:25)
[2023-05-29] MEDS ORDERED: NALOXONE 0.4 MG/ML 1 ML VIAL IV PRN (08:25)
[2023-05-29] MEDS ORDERED: ACETAMINOPHEN TAB 325 MG TAB PO PRN (08:25)
[2023-05-29] MEDS ORDERED: PNEUMONIA PROTOCOL UTILIZED 1 EACH MISC PO PRN (08:26)
[2023-05-29] MEDS ORDERED: AZITHROMYCIN 500 MG in SODIUM CHLORIDE 0.9% 250 ML IVPB STA (08:26)
[2023-05-29 08:43] LABS: Appearance,Urine Clear (Clear); Bilirubin,Urine Negative (Negative); Blood,Urine Negative (Negative); Color,Urine Light Yellow; Glucose,Urine (UA) Negative (Negative); Ketones,Urine Negative (Negative); Leukocyte Esterase,Urine Negative (Negative); Nitrite,Urine Negative (Negative); Protein,Urine Negative (Negative); Specific Gravity,Urine 1.011 (1.001-1.035); Urobilinogen,Urine <2.0 mg/dL (<2.0)
[2023-05-29] MEDS: guaiFENesin-Coden 100-10MG/5ML 10 ML CUP PO PRN ×2 (09:47→20:13)
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
[2023-05-29] MEDS: HYDROmorphone 1 MG/ML 1 ML SYRINGE IVP PRN ×2 (13:56→18:12)
[2023-05-29 18:53] LABS: Basophils % (A) 0 %; Eosinophils # (A) 0.1 k/uL (0-0.7); Eosinophils % (A) 1 %; HCT 46.9 % (39.0-53.0); HGB 15.8 gm/dL (13.0-17.5); Lymphocytes # (A) 1.3 k/uL (1.0-4.8); Lymphocytes % (A) 19 %; MCH 31.3 pg (25.0-35.0); MCHC 33.7 g/dL (31.0-37.0); MCV 92.9 fL (80.0-100.0); Mean Platelet Volume 8.2; Monocytes # (A) 0.4 k/uL (0-1.0); Monocytes % (A) 5 %; Neutrophils # (A) 5.2 k/uL (1.3-7.7); Neutrophils % (A) 74 %; Platelet Count 196 k/uL (150-450); RBC 5.05 m/uL (4.30-5.90); RDW 12.9 % (11.5-15.5)
[2023-05-29 20:39] LABS: Basophils % (A) 0 %; Eosinophils # (A) 0.1 k/uL (0-0.7); Eosinophils % (A) 2 %; HCT 48.2 % (39.0-53.0); HGB 16.2 gm/dL (13.0-17.5); Lymphocytes # (A) 1.7 k/uL (1.0-4.8); Lymphocytes % (A) 22 %; MCH 31.4 pg (25.0-35.0); MCHC 33.6 g/dL (31.0-37.0); MCV 93.4 fL (80.0-100.0); Mean Platelet Volume 7.5; Monocytes # (A) 0.5 k/uL (0-1.0); Monocytes % (A) 7 %; Neutrophils # (A) 5.2 k/uL (1.3-7.7); Neutrophils % (A) 68 %; Platelet Count 213 k/uL (150-450); RBC 5.16 m/uL (4.30-5.90); WBC 7.7 k/uL (3.8-10.6)
[2023-05-30 01:22] LABS: Basophils % (A) 0 %; Eosinophils # (A) 0.1 k/uL (0-0.7); Eosinophils % (A) 2 %; HCT 45.4 % (39.0-53.0); HGB 15.3 gm/dL (13.0-17.5); Lymphocytes # (A) 1.4 k/uL (1.0-4.8); Lymphocytes % (A) 20 %; MCH 31.1 pg (25.0-35.0); MCHC 33.6 g/dL (31.0-37.0); MCV 92.7 fL (80.0-100.0); Mean Platelet Volume 7.5; Monocytes # (A) 0.5 k/uL (0-1.0); Monocytes % (A) 7 %; Neutrophils % (A) 70 %; Platelet Count 177 k/uL (150-450); WBC 7.1 k/uL (3.8-10.6)
--- NOTE | 2023-05-30 07:59 | XR ---
EXAMINATION TYPE: XR chest 2V DATE OF EXAM: 05/30/2023 7:39 AM CLINICAL INDICATION:Male, 58 years old with history of pneumonia; COMPARISON: Chest radiographs from 05/29/2023 TECHNIQUE: XR chest 2V Frontal and lateral views of the chest. FINDINGS: Lungs/Pleura: There is no evidence of pleural effusion, focal consolidation, or pneumothorax. Pulmonary vascularity: Unremarkable. Heart/mediastinum: Cardiomediastinal silhouette is unremarkable. Musculoskeletal: No acute osseous pathology. Other findings: None IMPRESSION: No acute cardiopulmonary disease/process.
[2023-05-30] MEDS: AZITHROMYCIN 500 MG TAB PO SCH (08:53)
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
--- NOTE | 2023-05-30 12:52 | P.PN ---
Subjective Progress Note Date: 05/30/23 CHIEF COMPLAINT: Abdominal pain HISTORY OF PRESENT ILLNESS: The patient is a 58-year-old male presents with abdominal pain. Patient is taking Motrin 800 mg every 6 hrs. He had coughing spell 3 weeks ago with sinus issues. He takes Claritin D and cough drops that did not go away. He had a coughing attack Kimo, 2 days ago and felt a pulling and tear at the right side of the abdomen that flares up only when he coughs. He reported that pain would not go away and came to the ER. He reports feeling bet ter when he does not cough. He was being evaluated for pneumonia. He is pending for knee surgery in 1 month. He has not been seen by pulmonary. He reports yellow productive sputum and continues to have violent coughing spell during assessment. ROS: No reports of nausea and vomiting. No bowel movements. No fevers or chills. No new chest pain. No productive sputum PHYSICAL EXAM: VITAL SIGNS: Reviewed CONSTITUTIONAL: Well developed and in no acute distress. EYES: Conjuctivae without sclera icterus. Extraocular movements grossly intact. HEAD, EARS, NOSE, THROAT: Moist buccal mucosa. Head is atraumatic, normocephalic. Hears conversational speech. No nasal drainage. RESPIRATORY: Non-labored respirations and equal bilateral excursions. CARDIOVASCULAR: Palpable 2+ radial pulses. ABDOMEN: Tenderness along right abdomen MUSCULOSKELETAL: No gross deformity of the lower extremities noted. No clubbing. No cyanosis. SKIN: Good skin turgor. Well perfused. NEUROLOGIC: Cranial nerves II through XII grossly intact. No focal or lateralizing signs. PSYCH: Appropriate affect. Alert and oriented to person, place and time. STUDIES: CT abdomen and pelvis reviewed with right rectus sheath hematoma. Demonstrates possible pneumonia. This is my independent interpretation. CLINICAL LABS: Reviewed. Hemoglobin normal. ASSESSMENT: 1. Rectus sheath hematoma 2. Pneumonia with chronic cough PLAN: 1. Consult Pulmonary for severe coughing and pneumonia per CT 2. Hold all NSAIDS 3. Medicine consulted for medical management 4. In 1 month, he is about to undergo knee surgery with Dr. Rowan with resolution of any underlying pneumonia. Objective - Vital Signs Vital signs: Vital Signs Temp 98.1 F 05/30/23 11:25 Pulse 70 05/30/23 11:25 Resp 18 05/30/23 11:25 BP 142/75 12/24/23 11:25 Pulse Ox 95 05/30/23 11:25 FiO2 Intake & Output 05/29/23 05/30/23 05/30/23 18:59 06:59 18:59 Weight 124.738 kg Other: Voiding Method Toilet # Voids 1 - Labs CBC & Chem 7: 05/30/23 01:10 05/29/23 06:50
[2023-05-30] MEDS: BENZONATATE 100 MG CAP PO SCH ×3 (13:20→21:49)
[2023-05-30] MEDS: guaiFENesin-Coden 100-10MG/5ML 10 ML CUP PO PRN (21:02)
[2023-05-31] MEDS: guaiFENesin-Coden 100-10MG/5ML 10 ML CUP PO PRN (03:13)
[2023-05-31] MEDS: predniSONE 20 MG TAB PO SCH (09:46)
[2023-05-31] MEDS: BENZONATATE 100 MG CAP PO SCH ×3 (09:46→20:58)
[2023-05-31] MEDS: AZITHROMYCIN 500 MG TAB PO SCH (09:46)
--- NOTE | 2023-05-31 10:49 | P.PN ---
Subjective Progress Note Date: 05/31/23 No new complaints. Gen: in no apparent distress, resting comfortably in bed Eyes: PERRL, no scleral injection or icterus HENT: normocephalic, atraumatic, good hearing acuity, moist mucous membranes Neck: no tracheal deviation, full range of motion Resp: good air exchange, breathing comfortably with no accessory muscle use, no tactile fremitus, clear to auscultation bilaterally without any evidence of crackles in the left lower lobe CVS: good distal perfusion x 4, no pitting edema, regular rate and rhythm without murmurs GI: soft, NTTP, ND, no hepatosplenomegaly : no suprapubic tenderness, no CVAT, martinez catheter not present MSK: no clubbing, no cyanosis, no noted contractures of extremities Skin: no noted rashes, petechiae; temperature of skin is appropriate Neuro: moving all extremities without signs of weakness, CN II-XII intact Psych: cooperative, euthymic mood, insight and judgment intact Hospital Course: 58 year old man with osteoarthritis on motrin presented with abdominal pain. Today, patient was afebrile, 142/75, heart rate 70, 95% on room air. CBC was unremarkable, hemoglobin was 15.3. Basic metabolic panel was unremarkable. Liver function is unremarkable. Lipase was 129. UA was clear. Covid was negative. Chest x-ray did not show any evidence of pneumonia. CT A/P showed possible left lower lobe pneumonia, but could also have been overread. Assessment/plan: Community acquired pneumonia -Agree with a 5 day course of antibiotics, patient is stable for discharge medically and this can be treated as an outpatient. I prescribed 4 additional days of cefdinir to complete his antibiotic course. -Pulmonology was consulted and ordered a procalcitonin. -Patient does not need azithromycin outpatient Rectal sheath hematoma Osteoarthritis -Patient was counseled on discontinuing Motrin completely due to bleeding risk, he denied melena, hematochezia. I suggested the patient should use Tylenol 650 mg every 4 when necessary and prescribed this as an outpatient. -Outpatient follow-up for knee replacement per orthopedic surgery Patient is full code Objective - Vital Signs Vital signs: Vital Signs Temp 99.1 F 05/31/23 08:08 Pulse 66 05/31/23 08:08 Resp 18 05/31/23 08:08 BP 142/77 05/31/23 08:08 Pulse Ox 95 05/31/23 08:08 FiO2 Intake & Output 05/30/23 05/31/23 05/31/23 18:59 06:59 18:59 Output Total 3 Balance -3 Output: Urine 3 Other: Voiding Method Toilet Toilet - Labs CBC & Chem 7: 05/30/23 01:10 05/29/23 06:50 Labs: Microbiology - Last 24 Hours (Table) 05/29/23 20:11 Gram Stain - Preliminary Sputum Sputum Culture - Preliminary 05/29/23 09:55 Blood Culture - Preliminary Blood 05/29/23 09:55 Blood Culture - Preliminary Blood
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
--- NOTE | 2023-05-31 17:54 | P.PN ---
Subjective Progress Note Date: 05/31/23 CHIEF COMPLAINT: Abdominal pain HISTORY OF PRESENT ILLNESS: The patient is a 58-year-old male presents with trauma-induced rectus sheath hematoma after chronic coughing spells. Patient seen by pulmonary team and placed on steroids. Patient reports still chronic cough and abdominal pain with new bruising. ROS: No reports of nausea and vomiting. No fevers or chills. No new chest pain. PHYSICAL EXAM: VITAL SIGNS: Reviewed CONSTITUTIONAL: Well developed and in no acute distress. EYES: Conjuctivae without sclera icterus. Extraocular movements grossly intact. HEAD, EARS, NOSE, THROAT: Moist buccal mucosa. Head is atraumatic, normocephalic. Hears conversational speech. No nasal drainage. RESPIRATORY: Non-labored respirations and equal bilateral excursions. CARDIOVASCULAR: Palpable 2+ radial pulses. ABDOMEN: Tenderness along right abdomen. Minimal bruising 1 x 2 cm right flank. MUSCULOSKELETAL: No gross deformity of the lower extremities noted. No clubbing. No cyanosis. SKIN: Good skin turgor. Well perfused. NEUROLOGIC: Cranial nerves II through XII grossly intact. No focal or lateralizing signs. PSYCH: Appropriate affect. Alert and oriented to person, place and time. CLINICAL LABS: Reviewed. Hemoglobin normal. ASSESSMENT: 1. Rectus sheath hematoma, traumatic 2. Pneumonia with chronic cough PLAN: 1. He reports April Ho barely helping. We'll start Claritin-D. 2. Antibiotic management in the start of steroids per pulmonary 3. Discharge pending clearance from senior management consultant, pulmonary team Objective - Vital Signs Vital signs: Vital Signs Temp 99.4 F 05/31/23 13:43 Pulse 74 05/31/23 13:43 Resp 16 05/31/23 13:43 BP 125/75 05/31/23 13:43 Pulse Ox 96 05/31/23 13:43 FiO2 Intake & Output 05/30/23 05/31/23 05/31/23 18:59 06:59 18:59 Output Total 3 Balance -3 Output: Urine 3 Other: Voiding Method Toilet Toilet - Labs CBC & Chem 7: 05/30/23 01:10 05/29/23 06:50 Labs: Microbiology - Last 24 Hours (Table) 05/29/23 20:11 Gram Stain - Preliminary Sputum Sputum Culture - Preliminary 05/29/23 09:55 Blood Culture - Preliminary Blood 05/29/23 09:55 Blood Culture - Preliminary Blood
[2023-05-31] MEDS: LORATADINE-PSEUDOEPH 5-120 MG 1 EACH TAB.ER.12H PO SCH (18:12)
[2023-05-31] MEDS: guaiFENesin-DM 100-10MG/5ML 10 ML CUP PO SCH ×2 (18:12→23:21)
[2023-06-01] MEDS: LORATADINE-PSEUDOEPH 5-120 MG 1 EACH TAB.ER.12H PO SCH (06:42)
[2023-06-01] MEDS: guaiFENesin-DM 100-10MG/5ML 10 ML CUP PO SCH ×2 (06:42→11:55)
[2023-06-01 08:16] VITALS: RESP 17
[2023-06-01] MEDS: BENZONATATE 100 MG CAP PO SCH (08:32)
[2023-06-01] MEDS: predniSONE 20 MG TAB PO SCH (08:32)
--- NOTE | 2023-06-01 10:30 | P.PN ---
Progress Note - Text Progress Note Date: 06/01/23 Discussed with patient care of rectus sheath hematoma and FU with PCP. Pending clearance from pulmonary for discharge without antibiotics.
[2023-06-01 13:26] VITALS: BP 120/74; PULSE 68; TEMP 98.3
--- NOTE | 2023-06-01 13:41 | P.PN ---
Subjective Progress Note Date: 06/01/23 Hospital course: Patient is a very pleasant 58-year-old male with a past medical history of osteoarthritis. He presented to the hospital on 05/29/23 with a chief complaint of abdominal pain. He was admitted under Gen. surgery team for rectal sheath hematoma and we are consulted for medical management and concerns of community- acquired pneumonia. Physical exam: Vital signs reviewed and stable. General: Nontoxic, no distress and appears stated age. Derm: Skin warm and dry, normal coloration for ethnicity. Head: Atraumatic, normocephalic and symmetric. Eyes: EOMs intact, no lid lag, and anicteric sclera Mouth: no lip lesions, mucus membranes moist Cardiovascular: regular rate and rhythm with normal S1S2, no murmur, positive posterior tibial pulses bilaterally, and cap refill < 2 seconds. Lungs: Respirations even, regular, and unlabored on room air. Lungs CTA bilat erally, no rhonchi, no rales, no wheezing, and no accessory muscle usage. Abdominal: soft, nontender to palpation, no guarding, no appreciable organomegaly Ext: ROM intact. No gross muscle atrophy, no edema, no contractures Neuro: Speech clear, face symmetrical and CN II-XII grossly intact with no noted focal neuro deficits Psych: Alert and oriented to person, place, time, and situation. Appropriate and pleasant affect. Assessment and Plan of Care: Community acquired pneumonia -Agree with a 5 day course of antibiotics, patient is stable for discharge medically and this can be treated as an outpatient. I prescribed 4 additional days of cefdinir to complete his antibiotic course. -Pulmonology was consulted and ordered a procalcitonin. -Patient does not need azithromycin outpatient Rectal sheath hematoma Osteoarthritis -Patient was counseled on discontinuing Motrin completely due to bleeding risk, he denied melena, hematochezia. I suggested the patient should use Tylenol 650 mg every 4 when necessary and prescribed this as an outpatient. -Outpatient follow-up for knee replacement per orthopedic surgery Data reviewed: Blood cultures showing no growth to date. Sputum culture is negative. Showing moderate normal respiratory dom. Pro-calcitonin was negative at 0.03. Vital signs reviewed. Blood pressure 132/75, heart rate 62, respiratory rate 17, temp 98.1F, SpO2 is 96% on room air. Thank you for allowing us to participate in the care of this pleasant patient. Do not hesitate to contact us with questions. Someone can be reached from the [facility] hospitalist group all hours of the day at [phone] or via perfect serve. Patient was seen independently by Nurse Pracitioner. This document was prepared using [employer] dictation software. Please allow for errors in operations assistant, while rare they do occur. Benji Dwyer SUPERVISOR [employer]IVETING rendered care for this patient independently, reviewed the findings and plan as documented in the note above. I did not physically speak with or examine the patient on this date. Objective - Vital Signs Vital signs: Vital Signs Temp 98.1 F 06/01/23 07:56 Pulse 62 06/01/23 07:56 Resp 17 06/01/23 07:56 BP 132/75 06/01/23 07:56 Pulse Ox 96 06/01/23 07:56 FiO2 Intake & Output 05/31/23 06/01/23 06/01/23 18:59 06:59 18:59 Intake Total 590 Output Total 1300 Balance -1300 590 Intake: Oral 590 Output: Urine 1300 Other: Voiding Method Toilet Toilet # Voids 3 - Labs CBC & Chem 7: 05/30/23 01:10 05/29/23 06:50 Labs: Microbiology - Last 24 Hours (Table) 05/29/23 09:55 Blood Culture - Preliminary Blood 05/29/23 09:55 Blood Culture - Preliminary Blood 05/29/23 20:11 Gram Stain - Preliminary Sputum Sputum Culture - Preliminary
--- NOTE | 2023-06-01 20:11 | P.PN ---
Subjective Progress Note Date: 06/01/23 This is a pleasant 58-year-old male patient with a known history of gastroesophageal reflux disease, hearing disorder, osteoarthritis and left knee pain and had been utilizing a significant amount of Motrin recently. He is a lifelong nonsmoker. He presented to the emergency room on 05/29/2023 with comp laints of abdominal pain. He had been doing a lot of coughing and had cold-like symptoms prior. Chest x-ray reveals no acute cardiopulmonary process. Computed tomography scan of the abdomen and pelvis revealed an actively bleeding rectus sheath hematoma on the right measuring 10.2 x 5.6 x 9.0 cm. Was a questionable left lower lobe opacity. Prostatomegaly. Scattered colonic diverticulosis. He had been seen by surgical services who were planning for observation of hemoglobin and pain control. He was still having issues with cough and congestion. We're consulted for the same. Follow-up chest x-ray continued to show no acute cardiopulmonary process. He is seen today in consultation on the regular medical floor. He is awake and alert in no acute distress. Sitting up in bed. Maintaining O2 saturations in the 90s on room air. He had been initiated on ceftriaxone and azithromycin. Continued on Tessalon Perles and Robitussin. On today's evaluation of 06/01/2023, the patient's condition is stable. Cough is subsided. No interval worsening of his rectus sheath hematoma. No nausea or vomiting or abdominal pain. No chest pain. He has any pain and the patient was taken nonsteroidal and supplementary medication outpatient basis which could've triggered an acute asthmatic reaction.No new labs are available from today. Pro-calcitonin level is low. The patient is to be discharged home today. He'll be given a cough medication. No hypoxemia. Objective - Vital Signs Vital signs: Vital Signs Temp 98.3 F 06/01/23 13:08 Pulse 68 06/01/23 13:08 Resp 17 06/01/23 13:08 BP 120/74 06/01/23 13:08 Pulse Ox 93 L 06/01/23 13:08 FiO2 Intake & Output 05/31/23 06/01/23 06/01/23 18:59 06:59 18:59 Intake Total 590 540 Output Total 1300 Balance -1300 590 540 Intake: Oral 590 540 Output: Urine 1300 Other: Voiding Method Toilet Toilet # Voids 3 - Exam GENERAL EXAM: Alert, pleasant 58-year-old male, on room air, fairly comfortable in no apparent distress. HEAD: Normocephalic. EYES: Normal reaction of pupils, equal size. NOSE: Clear with pink turbinates. THROAT: No erythema or exudates. NECK: No masses, no JVD. CHEST: No chest wall deformity. LUNGS: Equal air entry with no crackles, wheeze, rhonchi or dullness. CVS: S1 and S2 normal with no audible murmur, regular rhythm. ABDOMEN: No hepatosplenomegaly, normal bowel sounds, no guarding or rigidity. SPINE: No scoliosis or deformity SKIN: No rashes CENTRAL NERVOUS SYSTEM: No focal deficits, tone is normal in all 4 extremities. EXTREMITIES: There is no peripheral edema. No clubbing, no cyanosis. Peripheral pulses are intact. - Labs CBC & Chem 7: 05/30/23 01:10 05/29/23 06:50 Labs: Microbiology - Last 24 Hours (Table) 05/29/23 20:11 Gram Stain - Final Sputum Sputum Culture - Final 05/29/23 09:55 Blood Culture - Preliminary Blood 05/29/23 09:55 Blood Culture - Preliminary Blood Assessment and Plan Plan: Abdominal pain secondary to rectus sheath hematoma suspect secondary to forceful coughing, conservative management, no surgical interventions planned at this time, stable without any interval change or any new symptoms Acute cough, likely secondary to a nonspecific bronchospastic reaction. Rule out nonsteroidal and Timentin medication probability to the skin of this of any pneumonia Left knee pain secondary to osteoarthritis the patient had been taking increased amounts of Motrin History of gastroesophageal reflux disease History of osteoarthritis History of diverticulosis Osteoarthritis Lifelong nonsmoker Plan: The patient is to be discharged home No evidence of pneumonia Check a pro-calcitonin is nonelevated Continue Tessalon Jacki Ho Prednisone burst taper at time of discharge Avoid use of nonsteroidal anti-inflammatory medications Discharge home today
--- NOTE | 2023-06-07 19:19 | P.DS ---
Providers Date of admission: 05/29/23 09:17 Expected date of discharge: 06/01/23 Attending physician: Elmer Capps Consults: 05/30/23 11:30 Consult Physician Urgent Consulting Provider: Ana Ball Consult Reason/Comments: Medical management Do you want consulting provider notified?: Yes 05/30/23 12:52 Consult Physician Routine Consulting Provider: Chema Calvin Consult Reason/Comments: Pneumonia per CT, unresolving Do you want consulting provider notified?: Yes Primary care physician: Stated None Hospital Course: ASSESSMENT: 1. Rectus sheath hematoma, traumatic 2. Pneumonia with chronic cough COURSE: The patient is a 58-year-old male presents with trauma-induced rectus sheath hematoma after chronic coughing spells. Patient seen by pulmonary team and placed on steroids. Patient reports still chronic cough and abdominal pain with new bruising now improved. ROS: No reports of nausea and vomiting. No fevers or chills. No new chest pain. PHYSICAL EXAM: VITAL SIGNS: Reviewed CONSTITUTIONAL: Well developed and in no acute distress. EYES: Conjuctivae without sclera icterus. Extraocular movements grossly intact. HEAD, EARS, NOSE, THROAT: Moist buccal mucosa. Head is atraumatic, normocephalic. Hears conversational speech. No nasal drainage. RESPIRATORY: Non-labored respirations and equal bilateral excursions. CARDIOVASCULAR: Palpable 2+ radial pulses. ABDOMEN: Tenderness along right abdomen. Minimal bruising 1 x 2 cm right flank. MUSCULOSKELETAL: No gross deformity of the lower extremities noted. No clubbing. No cyanosis. SKIN: Good skin turgor. Well perfused. NEUROLOGIC: Cranial nerves II through XII grossly intact. No focal or lateralizing signs. PSYCH: Appropriate affect. Alert and oriented to person, place and time. CLINICAL LABS: Reviewed. Hemoglobin normal. PLAN: 1. Stable for discharge. Patient Condition at Discharge: Fair Plan - Discharge Summary Discharge Rx Participant: No New Discharge Prescriptions: New Acetaminophen Tab [Tylenol] 650 mg PO Q6H PRN #30 tab PRN Reason: Pain Loratadine-Pseudoeph 10-240 mg [Claritin-D 24 Hour] 1 tab PO DAILY #10 tab guaiFENesin-DM 100-10MG/5ML [Robitussin DM] 10 ml PO Q6HR PRN #480 ml PRN Reason: Cough Benzonatate [Tessalon Perle] 200 mg PO TID PRN #30 capsule PRN Reason: Cough Pantoprazole [Protonix] 40 mg PO DAILY 30 Days #30 tab Continue Mupirocin 2% Oint [Bactroban 2% Oint] 1 applic NASAL TID PRN PRN Reason: nostril irritation Discontinued Ibuprofen [Motrin Ib] 800 mg PO Q6H PRN PRN Reason: Pain Discharge Medication List Mupirocin 2% Oint [Bactroban 2% Oint] 1 applic NASAL TID PRN 05/29/23 [History] Acetaminophen Tab [Tylenol] 650 mg PO Q6H PRN #30 tab 05/30/23 [Rx] Benzonatate [Tessalon Perle] 200 mg PO TID PRN #30 capsule 06/01/23 [Rx] Loratadine-Pseudoeph 10-240 mg [Claritin-D 24 Hour] 1 tab PO DAILY #10 tab 06/01/23 [Rx] Pantoprazole [Protonix] 40 mg PO DAILY 30 Days #30 tab 06/01/23 [Rx] guaiFENesin-DM 100-10MG/5ML [Robitussin DM] 10 ml PO Q6HR PRN #480 ml 06/01/23 [Rx] Follow up Appointment(s)/Referral(s): Harriet Dixon MD [STAFF PHYSICIAN] - 06/15/23 2:00 pm (Will need referral from your PCP) Patient Instructions/Handouts: Benzonatate (By mouth), Acetaminophen (By mouth), Dextromethorphan (By mouth), Loratadine (By mouth), Pantoprazole (By mouth), Contusion in Adults (ED) Discharge Disposition: HOME SELF-CARE
== END 2023-06-01 15:20 | disposition home or self-care (01) ==
LOC: EC 06:26 → 5NMEDONC 09:17
PROVIDERS: ADMIT Surgery; ATTEND Surgery
DX: R10.9 Unspecified abdominal pain (principal); M17.0 Bilateral primary osteoarthritis of knee; J18.9 Pneumonia, unspecified organism; I10 Essential (primary) hypertension; I25.10 Atherosclerotic heart disease of native coronary artery without angina pectoris; H91.92 Unspecified hearing loss, left ear
CPT/HCPCS: 96366 ×3; 96367 ×2; 96376; 96365; 96375; 99285; 36415; 94760; 80053; 87449; 83605; 83690; 85025 ×2; 81003; 87040; 87070; 87205; 84145; 87635; 71046 ×2; 74177; G0378 ×4; J2405; J0456; J0696 ×4; J1170 ×2; J1885; J7512 ×2; Q9967

== ENCOUNTER 2024-08-25 14:17 | Emergency (ER) | payer BC ==
[2024-08-25 15:07] LABS: Basophils % (A) 0 %; Eosinophils # (A) 0.1 k/uL (0-0.7); Eosinophils % (A) 1 %; HCT 47.1 % (39.0-53.0); HGB 16.1 gm/dL (13.0-17.5); Lymphocytes # (A) 1.1 k/uL (1.0-4.8); Lymphocytes % (A) 8 %; MCH 30.1 pg (25.0-35.0); MCHC 34.3 g/dL (31.0-37.0); MCV 87.8 fL (80.0-100.0); Mean Platelet Volume 7.2; Monocytes # (A) 0.5 k/uL (0-1.0); Monocytes % (A) 4 %; Neutrophils # (A) 11.2 k/uL (1.3-7.7); Neutrophils % (A) 86 %; Platelet Count 231 k/uL (150-450); RBC 5.36 m/uL (4.30-5.90); RDW 12.7 % (11.5-15.5)
[2024-08-25 15:20] LABS: ALT 28 U/L (4-49); AST 29 U/L (17-59); African American GFR (CKD) 88 (>60 ml/min/1.73 sqM); Albumin 4.2 g/dL (3.5-5.0); Alkaline Phosphatase 81 U/L (38-126); Anion Gap 10 mmol/L; Blood Urea Nitrogen 13 mg/dL (9-20); Calcium 9.1 mg/dL (8.4-10.2); Carbon Dioxide 22 mmol/L (22-30); Chloride 99 mmol/L (98-107); Creatine Kinase 54 U/L (55-170); Glucose 109 mg/dL (74-99); INR 1.1 (<1.2); Non-African American GFR(CKD) 76 (>60 ml/min/1.73 sqM); Partial Thromboplastin Time 27.6 sec (22.0-30.0); Potassium 4.3 mmol/L (3.5-5.1); Prothrombin Time 12.4 sec (10.0-12.5); Sodium 131 mmol/L (137-145); Total Bilirubin 1.6 mg/dL (0.2-1.3)
--- NOTE | 2024-08-25 15:24 | XR ---
EXAMINATION TYPE: XR chest 2V DATE OF EXAM: 08/25/2024 3:19 PM COMPARISON: 05/30/2023 CLINICAL INDICATION: Male, 59 years old with history of altered mental status: Shortness of breath TECHNIQUE: XR chest 2V views of the chest are obtained. FINDINGS: Scattered senescent parenchymal changes noted. No evidence for infiltrate. No evidence for atelectasis. Heart size is stable. Mediastinal structures are stable and grossly unremarkable. No evidence for hilar prominence. Degenerative changes dorsal spine. IMPRESSION: 1. No evidence for acute pulmonary disease. [facility], , 08/25/2024 3:22 PM
[2024-08-25] MEDS ORDERED: VANCOMYCIN IV PER PHARMACY 1 EACH MISC MISCELLANE PRN (15:55)
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
--- NOTE | 2024-08-25 16:51 | US ---
EXAMINATION TYPE: US venous doppler duplex LE BI DATE OF EXAM: 08/25/2024 4:39 PM COMPARISON: NONE CLINICAL INDICATION: Male, 59 years old with history of bilat LE swelling, recent knee replacement; r ight knee replacement 3 weeks ago. Pain, redness,and swelling noted. Pt states last year when he got his left knee replaced he had the same thing happen and they told him it was an allergic reaction, [place] in TECHNIQUE: The lower extremity deep venous system is examined utilizing real time linear array sonog joanne with graded compression, color doppler sonography, and spectral doppler. SIDE PERFORMED: Bilateral FINDINGS: VESSELS IMAGED: Common Femoral Vein Deep Femoral Vein Greater Saphenous Vein * Femoral Vein Popliteal Vein Small Saphenous Vein * Proximal Calf Veins (* superficial vessels) Right Leg: No evidence for DVT, Color Doppler imaging shows patency of the vessels. Spectral wavefor ms are within normal limits. Fluid collection noted in medial pop fossa measuring 8.0 x 3.1 x 3.2cm. Left Leg: No evidence for DVT, Color Doppler imaging shows patency of the vessels. Spectral waveform s are within normal limits. IMPRESSION: 1. No ultrasound evidence for deep venous thrombosis. 2. Right Moya's cyst. [facility], , 08/25/2024 4:48 PM
[2024-08-25] MEDS: SODIUM CHLORIDE 0.9% 1,000 ML IV ONE (17:29)
[2024-08-25] MEDS: ACETAMINOPHEN TAB 500 MG TAB PO STA (17:31)
[2024-08-25 17:33] VITALS: RESP 17
[2024-08-25] MEDS: VANCOMYCIN 2,000 MG in SODIUM CHLORIDE 0.9% 500 ML 500 ML IVPB STA (18:49)
--- NOTE | 2024-08-25 19:34 | CT ---
EXAMINATION TYPE: CT brain wo con CT DLP: 1171.4 mGycm, Automated exposure control for dose reduction was used. DATE OF EXAM: 08/25/2024 7:30 PM COMPARISON: None. CLINICAL INDICATION:Male, 59 years old with history of transient episode blurred vision, now resolved , Transient episode blurred vision, now resolved. TECHNIQUE: Brain: Multiple axial CT images of the brain were obtained without IV contrast. . Coronal and sagitta l reformats reviewed. FINDINGS: Brain: Extra-axial spaces: No abnormal extra-axial fluid collections. Ventricular system: Within normal limits Cerebral parenchyma: No acute intraparenchymal hemorrhage or mass effect. The ruth-white junction is well differentiated. Cerebellum: Unremarkable. Mass effect: No evidence of midline shift. Intracranial vasculature: unremarkable Soft tissues: Normal. Calvarium/osseous structures: No depressed skull fracture. Paranasal sinuses and mastoid air cells: Clear Visualized orbits: Bilateral aphakia IMPRESSION: No acute intracranial process. [facility], , 08/25/2024 7:32 PM
[2024-08-25 19:52] VITALS: BP 116/77; PULSE 84; TEMP 98.7
[2024-08-26] MEDS ORDERED: VANCOMYCIN 2,000 MG in SODIUM CHLORIDE 0.9% 500 ML 500 ML IVPB SCH (07:00)
== END 2024-08-25 20:04 | disposition home or self-care (01) ==
LOC: EC 14:17
DX: L03.115 Cellulitis of right lower limb (principal); L03.116 Cellulitis of left lower limb; M71.21 Synovial cyst of popliteal space [Baker], right knee; Z96.653 Presence of artificial knee joint, bilateral
CPT/HCPCS: 36415; 93005; 83880; 80053; 85652; 82550; 83605; 84484; 85025; 85610; 85730; 86140; 87040; 71046; 93970; 70450; 99285; 96365; 96366; 96368; J3370; J0696